=== PATIENT | male | born 1945 | race Caucasian/White ===

== ENCOUNTER 2017-10-01 20:57 | Emergency (ER) | payer OTHER, MEDICARE ==
[2017-10-01 21:10] VITALS: TEMP 97.9; BMI 31.1
[2017-10-01] MEDS ORDERED: FAMOTIDINE 20 MG/50 ML IVPB 20 MG/50 ML MG IVPB ONE ×2 (21:30→21:59)
[2017-10-01] MEDS ORDERED: PANTOPRAZOLE SODIUM 40 MG VIAL IVPUSH ONE (21:31)
[2017-10-01] MEDS ORDERED: PANTOPRAZOLE SODIUM 40 MG VIAL ONE (21:59)
--- NOTE | 2017-10-01 22:02 | PDOC ---
History of Present Illness - General Chief Complaint: Chest Pain Stated Complaint: EPIGASTRIC CHEST PAIN Time Seen by Provider: 10/01/17 21:19 - History of Present Illness Initial Comments: 10/01/17 21:57 The patient is a 72 year old male with a significant past medical history of Afib on coumadin, cholecystectomy, appendectomy, gastritis who presents to the emergency department with epigastric pain. As per patient, an hour and half prior to arrival, he experienced non-radiating sharp epigastric pain right after eating dinner. He took an antacid when his symptoms onset, with mild relief but due to the severity of the pain, he wanted to make sure it wasn't anything else. In the ED, he describes his pain to be radiating down to just above his umbulicus. The patient is noncompliant with his Prilosec. He denies any recent fevers, chills, headache or dizziness. Denies associated diaphoresis. He denies any recent nausea, vomit, diarrhea or constipation. He denies any recent chest pain or SOB. He denies any recent dysuria, frequency, urgency or hematuria. Allergies: NKA Past surgical history: Cholecystectomy (02/2017) Appendectomy. Social History: Social smoker. Occasional alcohol usage. Denies recreational drug use. Past History - Past Medical History Allergies/Adverse Reactions: Allergies Allergy/AdvReac Type Severity Reaction Status Date / Time No Known Drug Allergies Allergy Verified 10/01/17 20:59 Home Medications: Ambulatory Orders Allopurinol 300 mg PO DAILY 10/01/17 Fenofibrate Nanocrystallized [Tricor] 145 mg PO DAILY 10/01/17 Pantoprazole Sodium 40 mg PO DAILY 10/01/17 Silodosin [Rapaflo] 8 mg PO DAILY 10/01/17 Anemia: No Asthma: No Cancer: Yes (PROSTATE) Cardiac Disorders: Yes (ATRIAL FIBRILLATION) CVA: No COPD: No CHF: No Dementia: No Diabetes: No GI Disorders: Yes (COLONIC POLYPS) Disorders: Yes (PROSTATE CA DIAGNOSED 10/19) HTN: Yes Hypercholesterolemia: Yes Liver Disease: No Seizures: No Thyroid Disease: No Other medical history: gout - Surgical History Abdominal Surgery: Yes Appendectomy: Yes Cardiac Surgery: Yes (CARDIOVERSIONS X 2 UNSCUCCESSFUL) Cholecystectomy: Yes Lung Surgery: No Neurologic Surgery: No Orthopedic Surgery: Yes (RIGHT ANKLE SURGERY) - Suicide/Smoking/Psychosocial Hx Smoking History: Former smoker Have you smoked in the past 12 months: No Number of Cigarettes Smoked Daily: 0 If you are a former smoker, when did you quit?: 30 years ago Information on smoking cessation initiated: No Hx Alcohol Use: Yes (social) Drug/Substance Use Hx: No Substance Use Type: Alcohol Hx Substance Use Treatment: No Review of Systems - Review of Systems Comments:: 10/01/17 21:59 GENERAL/CONSTITUTIONAL: No fever or chills. No weakness. HEAD, EYES, EARS, NOSE AND THROAT: No change in vision. No ear pain or discharge. No sore throat. +GASTROINTESTINAL: Epigastric pain. No nausea, vomiting, diarrhea or constipation. GENITOURINARY: No dysuria, frequency, or change in urination. CARDIOVASCULAR: No shortness of breath. RESPIRATORY: No cough, wheezing, or hemoptysis. MUSCULOSKELETAL: No joint or muscle swelling or pain. No neck or back pain. SKIN: No rash NEUROLOGIC: No headache, vertigo, loss of consciousness, or change in strength/ sensation. ENDOCRINE: No increased thirst. No abnormal weight change. HEMATOLOGIC/LYMPHATIC: No anemia, easy bleeding, or history of blood clots. ALLERGIC/IMMUNOLOGIC: No hives or skin allergy. *Physical Exam - Vital Signs Last Vital Signs Temp Pulse Resp BP Pulse Ox 97.9 F 76 16 129/71 98 10/01/17 20:58 10/01/17 20:58 10/01/17 20:58 10/01/17 20:58 10/01/17 20:58 - Physical Exam Comments: 10/01/17 21:59 "GENERAL: Awake, alert, and fully oriented, in no acute distress HEAD: No signs of trauma EYES: PERRLA, EOMI, sclera anicteric, conjunctiva clear ENT: Auricles normal inspection, hearing grossly normal, nares patent, oropharynx clear without exudates. Moist mucosa NECK: Normal ROM, supple, no lymphadenopathy, JVD, or masses LUNGS: Breath sounds equal, clear to auscultation bilaterally. No wheezes, and no crackles HEART: irregularly irregular, normal rate, normal S1 and S2, no murmurs, rubs or gallops ABDOMEN: Soft, nontender, normoactive bowel sounds. No guarding, no rebound. No masses EXTREMITIES: Normal range of motion, no edema. No clubbing or cyanosis. No cords , erythema, or tenderness BACK: No midline spinal tenderness in cervical/thoracic/lumbar region NEUROLOGICAL: Normal speech, cranial nerves intact, negative pronator drift, 5/ 5 strength in all 4 extremities, normal sensation to light touch in all 4 extremities, normal cerebellar exam, normal gait, normal reflexes and tone SKIN: Warm, Dry, normal turgor, no rashes or lesions noted." Heart Score/ECG Review - History History: Slightly suspicious - Electrocardiogram EKG: Normal - Age Age: >/= 65 - Risk Factors Based on the list above the patient has:: 1-2 risk factors - Troponin Troponin: </= normal limit - Score Heart Score - Total: 3 #1 10/01/17 22:00 Twelve-lead EKG was performed and reviewed by me. Atrial fibrillation, rate 79. Normal axis. No ST elevations or T-wave inversions. +PVC ED Treatment Course - LABORATORY CBC & Chemistry Diagram: 10/01/17 21:56 10/01/17 21:56 - RADIOLOGY Radiology Studies Ordered: Category Date Time Status ABDOMEN CTA W/WO CONTRAST [CT] Stat CT Scan 10/01/17 21:29 Ordered CHEST CTA [CT] Stat CT Scan 10/01/17 21:29 Ordered CHEST X-RAY PORTABLE* [RAD] Stat Radiology 10/01/17 21:28 Taken Medical Decision Making - Medical Decision Making 10/01/17 22:15 72-year-old male with a history of atrial fibrillation on Coumadin, GERD presents to the emergency Department with sharp epigastric pain one and half hours prior to arrival. Vitals unremarkable. EKG is nonischemic. Due to severe, sudden onset sharp pain now radiating toward superior umbilical region, aortic dissection is on the differential. CTA will be obtained. ACS is a consideration as well, although unlikely as pain is epigastric, post prandial and now resolved. Other than Afib, pt does not have HTN, HL, DM or other risk factors. DDx also includes GERD, diverticulitis. Plan: -labs -CXR -CTA -reassess 10/02/17 00:23 Pt reports resolution of pain after GI cocktail CTA chest/abd/pelvis with no acute pathology Likely gastritis vs GERD Will check 2nd trop and likely DC if neg *DC/Admit/Observation/Transfer Diagnosis at time of Disposition: Epigastric abdominal pain of unknown etiology - Discharge Dispostion Disposition: HOME Condition at time of disposition: Stable Decision to Admit order: No - Referrals - Patient Instructions Printed Discharge Instructions: DI for Epigastric Pain Additional Instructions: Follow up with your primary doctor in 1-2 days. Return to the emergency department if you have any new, worsening, or concerning symptoms. - Post Discharge Activity - Attestations Physician Attestion: 10/02/17 01:47 I, Dr. Anne Dodson MD, attest that this document has been prepared under my direction and personally reviewed by me in its entirety. I further attest, that it accurately reflects all work, treatment, procedures and medical decision -making performed by me.
[2017-10-01 22:04] LABS: PH,URINE 5.5 (4.5-8); URINE APPEARANCE Clear; URINE BILIRUBIN Negative (NEGATIVE); URINE COLOR Yellow; URINE GLUCOSE (UA) Negative (NEGATIVE); URINE KETONE Negative (NEGATIVE); URINE LEUK ESTERASE Negative (NEGATIVE); URINE NITRITE Negative (NEGATIVE); URINE PROTEIN Negative (NEGATIVE); URINE UROBILINOGEN 0.2 (0.2-1.0)
[2017-10-01 22:07] LABS: BASO % 4.4 % (0-2.0); EOS % 1.2 % (0-4.5); HEMATOCRIT 46.1 % (35.4-49); HEMOGLOBIN 15.9 GM/dl (11.7-16.9); LYMPH % 22.8 % (8-40); MCH 32.5 pg (25.7-33.7); MCHC 34.5 g/dl (32.0-35.9); MEAN CELL VOLUME 94.4 fl (80-96); MEAN PLT VOLUME 8.1 fl (7.5-11.1); NEUT % 64.6 % (42.8-82.8); PLATELET COUNT 236 K/MM3 (134-434); RBC 4.88 M/mm3 (4.00-5.60); RDW 13.5 % (11.9-15.9); WHITE BLOOD COUNT 12.6 K/mm3 (4.0-10.8)
[2017-10-01 22:23] LABS: ACTIVATED PTT 44.4 SECONDS (25.2-36.5)
[2017-10-01 22:25] LABS: ALBUMIN 3.8 g/dl (3.5-5.0); ALK PHOS 49 U/L (32-92); ANION GAP 6 (8-16); BILIRUBIN,TOTAL 0.7 mg/dl (0.2-1.0); BLOOD UREA NITROGEN 20 mg/dl (7-18); CALCIUM 8.6 mg/dl (8.4-10.2); CHLORIDE 109 mmol/L (98-107); CO2 23 mmol/L (22-28); GLUCOSE,RANDOM 110 mg/dl (74-106); MAGNESIUM 1.9 mg/dL (1.8-2.4); POTASSIUM 3.7 mmol/L (3.5-5.1); SGOT/AST 72 U/L (10-42); SGPT/ALT 37 U/L (10-40); SODIUM 138 mmol/L (136-145); TOT PROT 7.1 g/dl (6.4-8.3)
[2017-10-01 22:27] VITALS: BP 131/81; PULSE 74
[2017-10-01 22:27] LABS: INR 2.01 (0.82-1.09); PROTHROMBIN TIME (PATIENT) 22.2 SEC (10.2-13.0)
[2017-10-01 22:47] LABS: LIPASE 154 U/L (73-393)
--- NOTE | 2017-10-02 14:33 | EKG ---
Test Reason : Blood Pressure : / mmHG Vent. Rate : 079 BPM Atrial Rate : 063 BPM P-R Int : 000 ms QRS Dur : 086 ms QT Int : 366 ms P-R-T Axes : 000 041 035 degrees QTc Int : 419 ms ATRIAL FIBRILLATION WITH PREMATURE VENTRICULAR OR ABERRANTLY CONDUCTED COMPLEXES ABNORMAL ECG NO PREVIOUS ECGS AVAILABLE Confirmed by SABI CONSTANTINO, ELIER ([id number]) on 10/02/2017 2:32:30 PM Referred By: MD TURNER Confirmed By:ELIER CELESTIN MD
== END 2017-10-02 01:50 | disposition home or self-care (01) ==
LOC: FER 20:57
PROC: 3E033GC Introduction of Other Therapeutic Substance into Peripheral Vein, Percutaneous Approach (ICD-10-PCS; principal; 2017-10-01)
DX: R10.13 Epigastric pain (principal); I48.91 Unspecified atrial fibrillation; Z79.01 Long term (current) use of anticoagulants; Z87.891 Personal history of nicotine dependence; I10 Essential (primary) hypertension; E78.00 Pure hypercholesterolemia, unspecified; Z85.46 Personal history of malignant neoplasm of prostate
CPT/HCPCS: 36415; 71045-TC-FY; 71275-TC; 74175-TC; 80053; 80162; 81003; 83690; 83735; 84484; 85025; 85610; 85730; 93005; 99284-25